=== PATIENT | male | born 1985 | race Asian ===

== ENCOUNTER 2020-08-24 18:58 | Emergency (ER) | payer OTHER ==
[~2020-08-24] VITALS: Ht 170.2 cm; Wt 88.5 kg
[~2020-08-24 18:58] MED LIST: PREDNISONE50 MG PO; PROAIR HFA8.5 GM INH; VENTOLIN HFA 1818 GM
[2020-08-24 20:10] VITALS: BP 129/84
== END 2020-08-24 20:10 | disposition home or self-care (01) ==
LOC: M.ERS 18:58
DX: S61.211A Laceration without foreign body of left index finger without damage to nail, initial encounter (principal); J45.909 Unspecified asthma, uncomplicated; W26.8XXA Contact with other sharp object(s), not elsewhere classified, initial encounter; Y93.89 Activity, other specified; Y92.89 Other specified places as the place of occurrence of the external cause; Y99.8 Other external cause status